=== PATIENT | female | born 1955 | race Caucasian/White ===

== ENCOUNTER 2018-08-19 08:10 | Day surgery (SDC) | payer MEDICARE, BC ==
[2018-08-19] MEDS: MOXIFLOXACIN 0.5% 3 ML OPH OPER ×2 (08:58→10:47)
[2018-08-19] MEDS: CYCLOPENTOLATE 2% 2 ML OPH OPER (08:59)
[2018-08-19] MEDS: PHENYLephrine 10% 5 ML OPH OPER (08:59)
[2018-08-19] MEDS: NEPAFENAC 0.1% 3 ML OPH OPER (09:00)
[2018-08-19] MEDS ORDERED: LIDOCAINE 2% (MDV) 20 ML INJ (10:06)
[2018-08-19] MEDS ORDERED: FENTAnyl 50 MCG/ML VIAL (10:20)
[2018-08-19] MEDS ORDERED: PROPOFOL 20 ML (10:20)
[2018-08-19] MEDS ORDERED: MIDAZOLAM 1 MG/ML 2 ML INJ (10:20)
[2018-08-19] MEDS ORDERED: ONDANSETRON 4 MG INJ (10:40)
[2018-08-19] MEDS ORDERED: DEXAMETHASONE 4 MG/ML 1 ML INJ (10:40)
[2018-08-19] MEDS ORDERED: METOCLOPRAMIDE 10 MG INJ (10:40)
[2018-08-19] MEDS ORDERED: PHENYLephrine (100 MCG/ML) 5ML SYG (10:40)
[2018-08-19] MEDS: EPINEPHrine 1 MG INJ (10:44)
[2018-08-19] MEDS: LIDOCAINE 1% (MPF) 10 ML INJ (10:44)
[2018-08-19] MEDS: TIMOLOL 0.5% 5 ML OPH (10:45)
[2018-08-19] MEDS ORDERED: SODIUM HYALURONATE 14 MG/ML SYG (11:57)
== END 2018-08-19 13:25 | disposition home or self-care (01) ==
LOC: SDS 08:10
DX: H25.12 Age-related nuclear cataract, left eye (principal); I10 Essential (primary) hypertension; E11.9 Type 2 diabetes mellitus without complications
CPT/HCPCS: 66984; 82962